=== PATIENT | female | born 1960 | race Caucasian/White ===

== ENCOUNTER 2017-08-20 08:30 | Outpatient (RCR) | payer OTHER ==
[2017-07-23 09:58] VITALS: BP 144/73
[2017-07-23 10:09] LABS: PLATELET COUNT, AUTOMATED 209 K/uL (150-450)
[~2017-08-20] VITALS: Ht 170.2 cm; Wt 100.7 kg
[~2017-08-20 08:30] MED LIST: ACET-2119 PO; ALBU8.5H IH; AZIT-17 PO; CALC-18 PO; CALC667T3 PO; CETI10CA8 PO; CETI1TAB80 PO; CHOL100062 PO; CHOL400C10 PO; DOCU-416 PO; EST42T PO; FLUT16SP19 NS; FOLI-68 PO; GABA-547 PO; GABA-549 PO; GUAI-242 PO; HYDR-385 PO; HYDR2TAB4 FT; IBU800 PO; LEVO-85 PO; LEVO50TA86 PO; LEVO750T44 PO; LEVO75TA73 PO; LOR5/325 PO; LORA-1254 PO; MAGN300C3 PO; MULT-1372 PO; NAPR220C12 PO; OMEP-114 PO; OXYC1TAB54 PO; POTT20 PO; PYRI100T57 PO; SULF-198 PO; TAM4 FT; THYR60TA25 PO; TRAM-420 PO; TRAZ-163 PO; TRAZ150T8 PO; ZOLP12.545 PO; [UNRECOGNIZED DRUG - OTHER]
[2017-08-20 08:39] VITALS: BP 122/78
[2017-08-20] MEDS ORDERED: TRAM-420 PO (09:12)
--- NOTE | 2017-08-20 10:17 | [facility] ONCOLOGY NOTE ---
DATE OF VISIT: August 20, 2017 CHIEF COMPLAINT/REASON FOR VISIT Ms. 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 HISTORY OF PRESENT ILLNESS Monica returns. She continues to do quite well. Her labs look excellent. She has very mild elevations of her liver function tests due to GRANADO. She had a scan in 2017 which showed stable benign nodules in the liver that have been present for over four years. It did note fatty liver as well. No concerning lymph nodes on that scan or on physical exam. Her tumor markers continue to be negative. Her labs otherwise look quite well. She feels well. She has lost some weight in the last two months due to increased stress with her son's as well as her 's surgeries. She has been more physically active and has been replacing a floor. 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 She takes 1200 mg of Neurontin daily. She continues to take calcium and vitamin D regularly. ONCOLOGY HISTORY Patient diagnosed at age 52 with inflammatory breast cancer. She had bilateral mastectomy following chemotherapy. For her chemotherapy she received TCH. She finished one year of Herceptin in August of 2013. She also had radiation to the right chest wall given the inflammatory breast cancer. She subsequently had a revision of the mastectomy to remove excess tissues in the axilla bilaterally. FAMILY HISTORY Remarkable for COPD in her parents. Her mother of lung cancer at age 74. She has two siblings with liver failure. SOCIAL HISTORY Patient is and has one son. 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 Rare alcohol use. Never smoker. REVIEW OF SYSTEMS CONSTITUTIONAL: No fever, chills. Positive weight loss with decreased p.o. intake with stress recently. HEENT: No headache or vision changes. CARDIOVASCULAR: No chest pain, dyspnea on exertion or edema. RESPIRATORY: No shortness of breath, wheeze or cough. GASTROINTESTINAL: No nausea or vomiting. GENITOURINARY: No dysuria or hematuria. MUSCULOSKELETAL: No aches or joint pains. PSYCHIATRIC: No anxiety or depression. SKIN: No concerning rashes or lesions LYMPHATIC: No concerning lumps or bumps. BREASTS: Status post mastectomy bilaterally. The remainder of the 14-point review of systems is otherwise negative. PHYSICAL EXAMINATION VITAL SIGNS: Blood pressure 122/78, pulse 66, respiratory rate 16, temperature 97.1 Fahrenheit, oxygen saturation 90% on room air. Weight 100.7 kg. Pain 0/ 10. Fatigue 0/10. GENERAL: Stable condition, resting comfortably in the chair. HEENT: Normocephalic, atraumatic. CARDIOVASCULAR: Regular rate and rhythm. No murmur, rub or gallop. LUNGS: Clear to auscultation bilaterally. ABDOMEN: Soft, obese. Nontender. EXTREMITIES: No clubbing, cyanosis or edema. SKIN: No concerning lesions. BREASTS: Exam deferred with bilateral mastectomies. LYMPHATIC: No appreciable cervical, supraclavicular or axillary adenopathy. The remainder of physical exam unremarkable. IMPRESSION/PLAN Ms. Jones is a very pleasant 56-year-old breast cancer survivor with the followin. 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 She completed Herceptin in early 2013. Plan to check labs every six months. 2. Vitamin D deficiency on replacement. Continue. 3. Osteopenia. Continue calcium and vitamin D. 4. Elevated liver enzyme due to nonalcoholic steatohepatitis. 5. History of hypothyroidism. 6. 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 Answered all of her questions. Will see her every six months. Billing: Return visit level 4. [facility]
== END 2017-08-31 09:35 | disposition home or self-care (01) ==
LOC: ONC 08:30
PROVIDERS: ATTEND Internal Medicine
DX: Z85.3 Personal history of malignant neoplasm of breast (principal); E55.9 Vitamin D deficiency, unspecified; M85.80 Other specified disorders of bone density and structure, unspecified site; K75.81 Nonalcoholic steatohepatitis (NASH); Z92.21 Personal history of antineoplastic chemotherapy; Z92.3 Personal history of irradiation
CPT/HCPCS: 36415; 82040; 82247; 82306; 82310; 82374; 82378; 82435; 82565; 82947; 83090; 84075; 84132; 84155; 84295; 84439; 84443; 84450; 84460; 84481; 84520; 85025; 86300; 99212

== ENCOUNTER 2018-02-11 08:00 | Outpatient (RCR) | payer OTHER ==
[2018-02-04 08:56] VITALS: BP 123/73
[2018-02-04 09:04] LABS: PLATELET COUNT, AUTOMATED 194 K/uL (150-450)
[~2018-02-11 08:00] MED LIST changes: +ALTEPLASE RECOMB 2 MG VIAL IVP PRN; +DEXTROSE 5%(*) 100 ML BAG 100 ML IVPB PRN; +HEPARIN FLSH (PORT) 500 UN/5ML IVP PRN; +LIDOCAINE/SOD BICARB 8.4% SYR ID PRN; +NS(*) 0.9% 100 ML BAG 100 ML IVPB PRN; +NS(*) 0.9% 500 ML BAG 500 ML IV PRN; -TRAZ-163 PO; +TRAZ100T31 PO; +WATER FOR INJ,STERILE 20 ML IVP PRN
[2018-02-11 08:03] VITALS: BP 136/88
--- NOTE | 2018-02-11 09:59 | Oncology Progress Note ---
History of Present Illness Evaluation Evaluation Date: Feb 11, 2018 Evaluation Time: 08:15 Primary Care Provider Primary Care Provider: CHRISTIANE Benítez Accompanied by Accompanied by: Self Last seen by : Luna 08/20/2017 Chief Complaint Chief Complaint Surveillance Inflammatory Breast Cancer Oncology History Oncology History - Patient diagnosed in June 2012 at age 52 with inflammatory breast cancer. - She had bilateral mastectomy following chemotherapy. - For her chemotherapy she received TCH. She finished one year of Herceptin in August of 2013. - She received radiation to the right chest wall given the inflammatory breast cancer. - She subsequently had a revision of the mastectomy to remove excess tissues in the axilla bilaterally. Treatment Treatment - Double Mastectomy with revision - Chest Wall radiation - Chemotherapy Taxotere, carboplatin, - Herceptin completed in early 2013 HPI HPI Ms. Jones is a very pleasant 56-year-old woman who is a Breast Cancer Survivor Dx: 06/2012. Patient was treated with chemotherapy Taxotere, Carboplatin, Herceptin. Radiation to the chest wall. She completed Herceptin in early 2013. Patient presents here today for her active surveillance last seen in August 2017. Apart from her neuropathy for which she takes tramadol when necessary , She reports being in her usual state of health. 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 Denies nausea, vomiting, no fevers, no chills, no night sweats, no palpable lymphadenopathy, no changes in the scar tissue from the bilateral breast, no changes in bowel or bladder pattern , she informs me that she started taking baby aspirin daily about a month ago.She informs me that the colonoscopy was done in January 2017, with recommendation follow-up in 5 years. I Could not find the colonoscopy report which was requested to have in our system today, she will help facilitate that. [facility] Patient History: FH: COPD (chronic obstructive pulmonary disease) FATHER, , Age:78 MOTHER, , Age:74 FH: lung cancer MOTHER, , Age:74 (Lung cancer) Liver failure siblings x 2 Social/Occupational History Social History: Social History This is a 57 Yr old White female, she is M and has [] Children Hx Smoking: No Smoking Status: Never Smoker Exposure to Second Hand Smoke?: No Allergies & Medications Allergies: Coded Allergies: Penicillins (Verified Allergy, Mild, CONGESTION, 12/01/14) ciprofloxacin HCl (Verified Allergy, Mild, RASH, 12/01/14) oxycodone (Verified Allergy, Unknown, VOMITING, SHAKY, 12/01/14) Home Meds Active Scripts Tramadol Hcl (TRAMADOL HCL) 50 Mg Tablet, 1-2 TAB PO Q4-6H Y for PAIN, #60 TAB 0 Refills Prov:CHRISSY BROCK MD 08/20/17 Gabapentin (GABAPENTIN) 300 Mg Capsule, 300 MG PO NOON, #360 CAPSULE 3 Refills Take 1200mg PO daily in divided doses. Prov:CHRISSY BROCK MD 01/29/17 Folic Acid (FOLIC ACID) 1 Mg Tablet, 1 MG PO QDAY, #90 TAB 3 Refills Prov:BELLA BANUELOS ANALYTICS DEVELOPER-BC, ONC 12/15/16 Cholecalciferol (Vitamin D3) (VITAMIN D) 10,000 Unit Capsule, 14030 UNIT PO WEEKLY, #12 CAPSULE Prov:BELLA BANUELOS ANALYTICS DEVELOPER-BC, ONC 05/10/16 Reported Medications Fluticasone Prop 50 Mcg Ns (FLONASE 50 MCG NS) 16 Gm [place].susp, 2 SPRAYS NS QDAY, BOT 01/29/17 Thyroid,Pork (ARMOUR THYROID) 60 Mg Tablet, 75 MG PO DAILY 07/07/15 Trazodone Hcl (TRAZODONE HCL) 100 Mg Tablet, 100 MG PO HS 12/01/14 Naproxen Sodium (ALEVE) 220 Mg Capsule, 220 MG PO PRN Y for PAIN, CAPSULE 08/28/13 Discontinued Reported Medications Albuterol Sulfate 90 Mcg/Act (PROAIR HFA 90 MCG/ACT) 8.5 Gm Hfa.aer.ad, 2 PUFF IH PRN, INHALER 12/21/15 Discontinued Scripts Levofloxacin 750 Mg Tab (LEVAQUIN 750 MG TAB) 750 Mg Tablet, 1 TAB PO QDAY for 7 Days, #7 TAB 0 Refills Prov:JESICA RIOJAS DNP, ANALYTICS DEVELOPER-BC 11/30/17 Review of Systems Constitution: Denies Appetite/Weight Change, Denies Fever/Chills/Sweating, Denies Recent Infection, Denies Other HEENT: No EARS: Tinnitus, No NOSE: Nasal Discharge, No THROAT: Sore Throat, No EYES: Dipolpia, No EARS: Hearing Problems, No NOSE: Epistaxis, No THROAT: Mouth Ulcers, No EYES: Vision Change, OTHER Respiratory: No Cough, No Expectoration, No Hemoptysis, No Shortness of Breath , No OTHER Cardiovascular: No Chest Pain, No Orthopnea, No Edema, No Palpitations, No OTHER Gastrointestinal: No Nausea, No Vomitting, No Diarrehea, No Constipation, No Heart Burn, No Swallowing Difficulties, No Abdominal Pain, No Other Gentiourinary: No Hematuria, No Dysuria, No Nocturia, No Other Musculoskeletal: No Muscle Pain, No Joint Pain, No Bone Pain, No Other Hematological: No Bleeding, No Weakness, No Enlarged Lyph Nodes, No Bruising, No Fatigue, No Other Skin: No Skin Rash, No Lumps, No Erythema, No Dry Skin, No Moist Skin, No Other Psychiatric: No Anxiety, No Depression, No Other Vital Signs Vital Signs Temperature: 97.6 Pulse: 80 BP Systolic: 136 BP Diastolic: 88 Respiratory Rate: 16 O2 SAT: 90 O2 Delivery: Height (feet) Height (inches) 67.00 Weight lb: 200 Weight oz: 8.0 Weight Kg (Rogerio): Pain: 0 PERFORMANCE STATUS: ECOG O- fully active, able to carry on all pre-disease performance w/o restriction Physical Exam General: Looks Stable, Well Developed, Well Nourished, Other (in no acute distress) HEENT: HEAD:Atraumatic Neck: Supple Lungs: Clear to Auscultation, Percussion Bilaterally Heart: Regular Rate and Rhythm Abdomen: Soft and Nontender, Other (grossly rounded) Extremities: No Cyanosis, No Clubbing, No Edema, No Other Lymphatics: No Peripheral Lymphadenopathy, No Other Psychiatric: Mood appears normal, Affect appears normal Skin: No Skin Rashes, No Bruising, No Purpura, No Moist Desquamation, No Dry Desquamation, No Errythema, No Mild Errythema, No Moderate Errythema, No Severe Errythema, No Induration, No Other Breast: No No Masses, No No Nipple Discharge, No No Skin Changes, No Other Assessment and Plan Assessment and Plan Ms. Jones is a very pleasant 56-year-old woman who is a Breast Cancer Survivor Dx: 06/2012. Patient was treated with chemotherapy Taxotere, Carboplatin, Herceptin. Radiation to the chest wall. She completed Herceptin in early 2013. DIAGNOSTIC DATA 02/04/18 CBC showed a white count of 5.2 , hemoglobin 15.6 hematocrit 44.9, platelets 194 ; ANC 3.3. CA15-3 Antigen 19; Homocysteine 10; folate 22.3; Vitamin B12 is 255 ; Chem panel totally normal, except AST 51; ALT 74; BUN 10, creatinine 0.90, uric acid, LDH, 1. Inflammatory breast cancer of the right breast status post bilateral mastectomies. 2. Vitamin D deficiency on replacement. Patient's taking vitamin D 50,000 units every week 3. Osteopenia. last Bone mineral density (BMD) was performed in 10/30/2016 with no significant changes in the bone mineral density since the previous exams done in 04/15/2013 T -The next DEXA scan of this patient should include the following sites: L1-L4 and the left hip.Continue calcium and vitamin D. 4. Elevated liver enzyme due to nonalcoholic steatohepatitis. Continue to monitor values 5. History of hypothyroidism. well controlled on Synthroid 6. 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 Homocysteine today is 10, folate is >23.3; Vitamin B12 is 255. Patient to continue taking Folic acid daily. PLAN 1. Continue surveillance f/u [id number]. next visit due in August 2018. 2. Labs q 6 months CA15-3 Antigen; CBC,CMP, Homocysteine, folic acid, vitamin D (OH), Vitamin B12, THS, (Free (T4,T3); folate 3. Colonoscopy report to be requested and copy in chart or [facility] 4.Patient to contact cancer Center with any issues or concerns as needed TIME SPENT: minutes 25> 20 minutes includes but not limited to discussion, counselling and co-ordination~ of care. Discussion with other health care providers, record review, review of lab work, diagnostic tests. Plan discussed extensively with patient. All the questions answered today. Thank you for the opportunity to be involved in the care of Karen Anderson. Billing Level: Return visit 4 CHRISTIANO CHAVEZ, ONC Feb 11, 2018 08:49
== END 2018-03-08 09:34 | disposition home or self-care (01) ==
LOC: ONC 08:00
PROVIDERS: ATTEND Internal Medicine
DX: Z85.3 Personal history of malignant neoplasm of breast (principal); E03.9 Hypothyroidism, unspecified; E55.9 Vitamin D deficiency, unspecified; M85.80 Other specified disorders of bone density and structure, unspecified site; K75.81 Nonalcoholic steatohepatitis (NASH); Z92.21 Personal history of antineoplastic chemotherapy; Z79.899 Other long term (current) drug therapy
CPT/HCPCS: 36415; 82040; 82247; 82306; 82310; 82374; 82435; 82565; 82607; 82746; 82947; 83090; 84075; 84132; 84155; 84295; 84439; 84443; 84450; 84460; 84481; 84520; 85025; 86300; 99212

== ENCOUNTER 2018-09-09 09:27 | Outpatient (RCR) | payer OTHER ==
[2018-09-03 09:20] LABS: PLATELET COUNT, AUTOMATED 204 K/uL (150-450)
[~2018-09-09 09:27] MED LIST changes: -ALTEPLASE RECOMB 2 MG VIAL IVP PRN; -DEXTROSE 5%(*) 100 ML BAG 100 ML IVPB PRN; -HEPARIN FLSH (PORT) 500 UN/5ML IVP PRN; -LIDOCAINE/SOD BICARB 8.4% SYR ID PRN; -NS(*) 0.9% 100 ML BAG 100 ML IVPB PRN; -NS(*) 0.9% 500 ML BAG 500 ML IV PRN; -WATER FOR INJ,STERILE 20 ML IVP PRN
[2018-09-09 09:31] VITALS: BP 126/79
--- NOTE | 2018-09-09 13:58 | [facility] ONCOLOGY NOTE ---
EVENT DATE: September 09, 2018 CHIEF COMPLAINT/REASON FOR VISIT Ms. Jones is a very pleasant 57-year-old female with a history of inflammatory breast cancer diagnosed in June 2012, here for followup. HISTORY OF PRESENT ILLNESS Monica returns. She continues to do quite well. Her labs look excellent. She has very mild elevations of her liver function tests due to GRANADO. She had a scan in 2017 as well as multiple prior to that which showed stable benign nodules in the liver, which we believe are cysts. It did note the fatty liver as well. Some weight loss would be beneficial for her but this has been a struggle. No other new issues. Her TSH was slightly high but she notes that she had missed several doses and defer to CHRISTIANE Benítez, for monitoring this. Given the very mild elevation of the TSH, it is very possible that she actually was overdosed and we should be backing off. However, I think simply making adjustments and following up with levels would be the best way to determine what she needs. ONCOLOGY HISTORY Patient diagnosed at age 52 with inflammatory breast cancer. She had bilateral mastectomy following chemotherapy. For her chemotherapy she received TCH. She finished one year of Herceptin in August of 2013. She also had radiation to the right chest wall given the inflammatory breast cancer. She subsequently had a revision of the mastectomy to remove excess tissues in the axilla bilaterally. FAMILY HISTORY Remarkable for COPD in her parents. Her mother of lung cancer at age 74. She has two siblings with liver failure. SOCIAL HISTORY Patient is and has one son. 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 Never smoker. REVIEW OF SYSTEMS CONSTITUTIONAL: No fevers, chills or significant weight change. HEENT: No headache or vision changes. CARDIOVASCULAR: No chest pain, dyspnea on exertion or edema. RESPIRATORY: No shortness of breath, wheeze or cough. GASTROINTESTINAL: No nausea or vomiting. LYMPHATIC: No concerning lumps or bumps. GENITOURINARY: No dysuria or hematuria. ENDOCRINE: No heat or cold intolerance. PSYCHIATRIC: No anxiety or depression. The remainder of the 14-point review of systems is otherwise negative. PHYSICAL EXAMINATION VITAL SIGNS: Blood pressure 126/79, pulse 89, respiratory rate 16, temperature 97 Fahrenheit, oxygen saturation 91% on room air. Weight 103.2 kg. Pain 0/10. Fatigue 2/10. GENERAL: Stable condition, resting comfortably in the chair. HEENT: Normocephalic, atraumatic. CARDIOVASCULAR: Regular rate and rhythm. LUNGS: Clear. LYMPHATIC: No appreciable cervical, supraclavicular or axillary adenopathy. ABDOMEN: Soft, obese, nontender, nondistended. No masses or organomegaly. EXTREMITIES: No clubbing, cyanosis or edema. SKIN: No concerning lesions. BREASTS: Exam deferred with bilateral mastectomies and no nodularity. The remainder of physical exam unremarkable. IMPRESSION/PLAN Ms. Jones is a very pleasant 57-year-old female with the followin. Inflammatory breast cancer of the right breast, status post bilateral mastectomies, chest wall radiation, chemotherapy including Taxotere, carboplatin and Herceptin. She completed Herceptin in early 2013. Plan to check labs every six months. 2. History of vitamin D deficiency, on replacement. Continue. 3. Osteopenia. Continue calcium and vitamin D. 4. History of elevated enzymes of the liver due to nonalcoholic steatohepatitis. Advised weight loss today. 5. History of hypothyroidism. Her most recent TSH was elevated but she had missed several doses. Defer to CHRISTIANE Benítez, on management of this. 6. History of hyperhomocystinemia, on folic acid. Continue. I answered all of her many questions today. No changes in her care. I would like to see her every six months given the high-risk cancer that she had at a young age. No other concerns today. Billing: Return visit level 3. Total time 30 minutes, counseling time 15. MTDD
== END 2018-10-01 08:52 | disposition home or self-care (01) ==
LOC: ONC 09:27
PROVIDERS: ATTEND Internal Medicine
DX: Z85.3 Personal history of malignant neoplasm of breast (principal); E03.9 Hypothyroidism, unspecified; E55.9 Vitamin D deficiency, unspecified; M85.80 Other specified disorders of bone density and structure, unspecified site; K75.81 Nonalcoholic steatohepatitis (NASH); Z92.21 Personal history of antineoplastic chemotherapy; Z79.899 Other long term (current) drug therapy; Z90.13 Acquired absence of bilateral breasts and nipples
CPT/HCPCS: 36415; 82040; 82247; 82306; 82310; 82374; 82435; 82565; 82607; 82746; 82947; 83090; 84075; 84132; 84155; 84295; 84439; 84443; 84450; 84460; 84481; 84520; 85025; 86300; 99212